=== PATIENT | male | born 1990 | race African-American/Black ===

== ENCOUNTER 2022-04-21 11:26 | Emergency (ER) | payer SELFPAY ==
[~2022-04-21] VITALS: Ht 180.3 cm; Wt 113.4 kg
--- NOTE | 2022-04-21 11:26 | NUR ---
BIB [facility] FROM WORK C/O SHARP LOWER BACK PAIN X1 HOUR, PT GETTING UP FROM CHAIR AND FELL TO THE GROUND, STATES HE DID NOT HIT HIS HEAD. PT DENIES DOING ANY HEAVY LIFTING OR ANY HX OF CHRONIC BACK PAIN. PT DENIES THE PAIN RADIATING TO HIS LEGS. PT STATED THAT INITIALLY THE PAIN WAS 8/10, CURRENTLY 1/10. PT RECIEVED 2 DOSES OF FENTANYL 50MCG (100MCG TOTAL) AND 800MG ON [employer] BY EMS. VITALS ARE WITHIN NORMAL LIMITS. DR SUAREZ AT BEDSIDE, AWAITING MD ORDERS.
--- NOTE | 2022-04-21 11:41 | NUR ---
[facility] FROM WORK C/O MID LOWER BACK PAIN, NON RADIATING, S/P STANDING UP FROM A CHAIR. PT STATES HE FELL BUT DID NOT HIT HIS HEAD. PT PLACED IN BED, AAOX4, BREATHING EVEN AND UNLABORED, AWAITING MD ORDERS.
[2022-04-21] MEDS ORDERED: KETOROLAC TROMETHAMINE INJ 60 MG/2 ML VIAL IM ONE (12:30)
[2022-04-21] MEDS ORDERED: KETOROLAC TROMETHAMINE INJ 30 MG/ML VIAL ONE (12:35)
--- NOTE | 2022-04-21 12:45 | NUR ---
DR SUAREZ AT BEDSIDE.
[2022-04-21] MEDS ORDERED: CAPS1ADH5 TP (12:46)
[2022-04-21] MEDS ORDERED: OXYC-133 PO (12:46)
--- NOTE | 2022-04-21 12:56 | NUR ---
Patient discharged to home in stable condition. Written and verbal after care instructions given. Patient verbalizes understanding of instruction.
[2022-04-21 12:58] VITALS: BP 128/80
== END 2022-04-21 12:59 | disposition home or self-care (01) ==
LOC: ER 11:31
DX: M54.50 Low back pain, unspecified (principal); Z79.899 Other long term (current) drug therapy
CPT/HCPCS: 99283; 96372; J1885